=== PATIENT | female | born 1945 | race Caucasian/White ===

== ENCOUNTER 2024-10-28 07:58 | Outpatient (CLI) | payer MEDICARE, OTHER, SELFPAY ==
[2024-10-28] VITALS (8 sets, daily range): BP systolic 110–152; BP diastolic 55–86; PULSE 60–72; RESP 14–18; TEMP 36.6; O2SAT 95–100
--- NOTE | 2024-10-28 08:20 | DI.RAD.S_ITS ---
PROCEDURE: PAIN C/T FACET INJ/BLK 1ST L INDICATIONS: Left C5, C6 and C7 MBB LA COMPARISON: None. FINDINGS/IMPRESSION: Fluoroscopic spot filming was performed to verify placement of spinal needles at the left C5, C6, and C7 level(s), as labeled on the films. Appropriate location(s) of the needle tip(s) was confirmed by injection of iodinated contrast. Dictated by: Celeste Brock M.D. on 10/29/2024 at 8:54 Approved by: Celeste Brock M.D. on 10/29/2024 at 8:54
[2024-10-28] MEDS: MIDAZOLAM 2 MG/2 ML VIAL IV (09:35)
[2024-10-28] MEDS: iopamidoL 15 ML VIAL 3 ML INJ (09:44)
[2024-10-28] MEDS: BUPIVACAINE 0.5% (PF) 10 ML VIAL 5 ML INJ (09:44)
--- NOTE | 2024-10-28 09:55 | P.PCN_ITS ---
Date/Time/Diagnoses Date of procedure: 10/28/24 Time of procedure: 09:56 Pre-procedure diagnosis: 1. FACET ARTHROPATHY 2. AXIAL NECK PAIN Post-procedure diagnosis: same Procedure Notes Procedure: 1. FLUOROSCOPICALLY GUIDED, CONTRAST-CONTROLLED LEFT C5, C6 and C7 MBB LA. Indications: Jami is referred by Dr. Reich for treatment of Axial Neck Pain Physician: Jens Ashton Total Fluoroscopy time (seconds): 12 Total sedation minutes: 15 Complications: none Procedure in detail & Post-procedure care: DESCRIPTION OF PROCEDURE Fluoroscopically guided, contrast-controlled left C5, C6 and C7 medial branch blocks LA. Following review of allergy and review of potential side effects and complications, including, but not necessarily limited to, infection, allergic reaction, local tissue breakdown, stroke, temporary or permanent nerve injury and paralysis, the patient indicated that the patient understood and agreed to proceed. An informed consent document was signed by the patient, witnessed by a nurse, and placed in the patient's chart. Additionally, other treatment options including medications, modalities, and physical therapy were reviewed with the patient. After review of previous anaesthesic history and IV conscious sedation the patient was deemed safe to proceed with today?s procedure with IV conscious sedation as ASA class II designation. Safety time-out was performed to confirm patient ID, procedure to be performed and site of procedure. IV sedation was accomplished with a combination of 2mg of Versed was administered by the RN after DO order, titrated to patient comfort during the course of the procedure while the patient remained responsive to all verbal commands In the prone position, following sterile prep and drape of the cervical spine region, the posterior aspect of the left C5, C6 and C7 medial branches were identified fluoroscopically. The skin was anesthetized via a 25-gauge 1.5-inch needle with 1% lidocaine solution into the corresponding medial branchs. At this point, a 25-gauge 2.5-inch spinal needle was atraumatically introduced and advanced under fluoroscopic guidance into the corresponding locations. Following negative aspiration, injections of approximately 0.1cc of Isovue 200 confirmed placement without vascular uptake. At this point, a total of 0.5cc of 0.25% bupivicaine solution was injected without complication into each of the corresponding medial branches. The procedure tolerated the procedure well without signs or symptoms of complications prior to transfer to the recovery area continued monitoring without incident. The patient was then transferred to the recovery area where they were observed for an appropriate period of time after the injection. The patient reported a VAS score of 8 prior to the procedure and a post- procedure VAS of 2. POST OP INSTRUCTIONS They were provided a Pain Log to continue to record their response to the target-specific procedure prior to their follow-up visit with their referring physician. Additionally, specific post-injection care instructions and a contact number to our office were provided if concerns arise regarding possible complications associated with the procedure are suspected.
== END 2024-10-28 10:05 | disposition home or self-care (01) ==
PROVIDERS: PCP Family Medicine; Referring Provider Physical Medicine & Rehabilitation; Visit Provider Physical Medicine & Rehabilitation
DX: M47.812 Spondylosis without myelopathy or radiculopathy, cervical region (principal)
CPT/HCPCS: 64490; 64491; 99152; J2250

== ENCOUNTER → 2024-12-06 10:12 | Outpatient (CLI) | payer MEDICARE, OTHER, SELFPAY ==
--- NOTE | 2024-12-06 10:13 | DI.RAD.S_ITS ---
PROCEDURE: XR CERVICAL SPINE 4V OR 5V INDICATIONS: NECK PAIN TECHNIQUE: 5 views of the cervical spine acquired. COMPARISON: [facility], RG, MRI C-SPINE W/O CONTRAST, 02/07/2024, 16:35. FINDINGS: Bones: No fractures or dislocations to the T1 level. There is intervertebral disc space height loss, prominent osteophytes, and uncovertebral joint hypertrophy. Small posterior disc osteophyte complex sees. Mild bony foraminal stenoses are seen at left and right L3-L4 and right C6-C7. Soft tissues: No prevertebral soft tissue swelling. Surgical clips. IMPRESSION: Severe degenerative changes in the cervical spine. Mild bony neural foraminal narrowings and posterior disc osteophyte complexes. Dictated by: Mat Blanco M.D. on 12/06/2024 at 12:11 Approved by: Mat Blanco M.D. on 12/06/2024 at 12:15
== END ==
PROVIDERS: PCP Family Medicine; Referring Provider Physical Medicine & Rehabilitation; Visit Provider Physical Medicine & Rehabilitation
DX: M47.22 Other spondylosis with radiculopathy, cervical region (principal); M50.10 Cervical disc disorder with radiculopathy, unspecified cervical region; M48.02 Spinal stenosis, cervical region
CPT/HCPCS: 72050; 99214

== ENCOUNTER 2025-01-04 07:29 | Outpatient (CLI) | payer MEDICARE, OTHER, SELFPAY ==
[2025-01-04] VITALS (9 sets, daily range): BP systolic 105–144; BP diastolic 51–64; PULSE 57–70; RESP 14–18; TEMP 36.4; O2SAT 98–100
[2025-01-04] MEDS: MIDAZOLAM 2 MG/2 ML VIAL IV (09:19)
[2025-01-04] MEDS: iopamidoL 15 ML VIAL 3 ML INJ (09:24)
[2025-01-04] MEDS: DEXAMETHASONE 10 MG/ML VIAL 20 MG INJ (09:24)
[2025-01-04] MEDS: BUPIVACAINE 0.25% (PF) VIAL 2 ML INJ (09:24)
[2025-01-04] MEDS: DEXAMETHASONE 10 MG/ML VIAL INJ (09:25)
--- NOTE | 2025-01-04 10:17 | P.PCN_ITS ---
Date/Time/Diagnoses Date of procedure: 01/04/25 Time of procedure: 10:17 Pre-procedure diagnosis: 1. CERVICAL STENOSIS, 2. CERVICAL HNP WITH UPPER EXTREMITY RADICULAR FEATURES Post-procedure diagnosis: same Procedure Notes Procedure: 1. FLUORSCOPICALLY GUIDED CONTRAST CONTROLLED INTERLAMINAR EPIDURAL STEROID INJECTION - C6/7 TL CAL Indications: Jami is referred by Dr. Reich for treatment of Cervical HNP with Upper Extremity Paresthesias. Physician: Jens Ashton Total Fluoroscopy time (seconds): 28 Total sedation minutes: 16 Complications: none Procedure in detail & Post-procedure care: FINDINGS Cervical Stenosis due to disc deterioration and nerve root irritation and nerve root irritation DESCRIPTION OF PROCEDURE Fluoroscopically guided, contrast-controlled C6/7 translaminar epidural steroid injection with conscious sedation. Following review of allergy and review of potential side effects and complications, including, but not necessarily limited to, infection, allergic reaction, local tissue breakdown, temporary as well as permanent nerve injury, stroke, paralysis, and possible , the patient indicated that patient understood and agreed to proceed. An informed consent document was signed by the patient, witnessed by a nurse, and placed in the patient's chart. Additionally, other treatment options including modalities, medications, and physical therapy were reviewed with the patient. After review of previous anaesthesic history and IV conscious sedation the patient was deemed safe to proceed with today?s procedure with IV conscious sedation as ASA class II designation. Safety time-out was performed to confirm patient ID, procedure to be performed and site of procedure. IV sedation was accomplished with a combination of 2mg of Versed administered by the RN after DO order, titrated to patient comfort during the course of the procedure while the patient remained responsive to all verbal commands. In the prone position, following sterile prep and drape of the cervical region, the C6/7 translaminar space was identified fluoroscopically. The skin was anesthetized via a 25-gauge 1.5-inch needle with 1% lidocaine solution. At this point, a 25-gauge, 2.5-inch short bevel spinal needle was atraumatically introduced and advanced under fluoroscopic guidance into epidural space at the C6/7 translaminar space. Depth was confirmed on lateral view. Radiological data, including multiple fluoroscopic views of the cervical spine, reveal a spinal needle at the C6/7 translaminar space. Lateral views then show placement of the needle in the epidural space. Subsequent views show contrast material flowing superiorly and inferiorly in the epidural space. DSA fluoroscopy with live contrast injection, once again, confirmed no vascular or intrathecal uptake. At this point, using loss of resistance technique with saline and air, the epidural space was entered. Following negative aspiration, injection of approximately 1.5 cc of Isovue-200 with live fluoroscopy in the AP view confirmed epidural flow in the epidural space without vascular or intrathecal uptake observed. Subsequently, a test dose of 1 cc of 1% lidocaine solution was injected and patient was observed for two minutes without signs or symptoms of complications, including abdominal pain, shortness of breath, bilateral upper or lower extremity weakness, nausea and vomiting, prior to steroid injection. At this point, 3cc or 30mg of dexamethasone was then injected without incident. The patient tolerated the procedure well without signs or symptoms of complic ations prior to being transferred to the recovery area for further monitoring, The patient was then transferred to the recovery area where they were observed for an appropriate period of time after the injection. The patient reported a VAS score of 6 prior to the procedure and a post-procedure VAS of 0. POST OP INSTRUCTIONS The patient was provided a Pain Log to continue to record their response to the target-specific procedure prior to follow-up visit with the referring provider. Additionally, specific post-injection care instructions and a contact number to our office were provided if concerns arise regarding possible complications associated with the procedure are suspected.
== END 2025-01-04 09:55 | disposition home or self-care (01) ==
PROVIDERS: PCP Family Medicine; Referring Provider Physical Medicine & Rehabilitation; Visit Provider Physical Medicine & Rehabilitation
DX: M48.02 Spinal stenosis, cervical region (principal); M50.123 Cervical disc disorder at C6-C7 level with radiculopathy
CPT/HCPCS: 62321; 99152; J1100; J2250; J3490